=== PATIENT | male | born 1990 | race Caucasian/White ===

== ENCOUNTER 2017-01-09 20:00 | Emergency (ER) | payer MEDICAID ==
[~2017-01-09] VITALS: Ht 170.2 cm; Wt 95.3 kg
[2017-01-09 20:10] VITALS: BP 116/89
--- NOTE | 2017-01-09 20:21 | NUR ---
VISION ACUITY BOTH EYE 20/30, RT EYE 20/30, LEFT 20/70
--- NOTE | 2017-01-09 20:23 | NUR ---
PT TAKEN TO BED 6
--- NOTE | 2017-01-09 20:40 | NUR ---
26 yr male PATIENT PRESENTS TO ED WITH left eye pain with blurred vision . PT STATES since yesterday at work . DENIES N/V/D; SKIN IS PINK/WARM/DRY; AAOX4 WITH EVEN AND STEADY GAIT; LUNGS CLEAR BL; HR EVEN AND REGULAR; PT DENIES ANY FEVER, CP, SOB, OR COUGH AT THIS TIME; PATIENT STATES PAIN OF 2/10 AT THIS TIME; VSS; PATIENT POSITIONED FOR COMFORT; HOB ELEVATED; BEDRAILS UP X2; BED DOWN. ER MD MADE AWARE OF PT STATUS.
[2017-01-09] MEDS ORDERED: FLUORESCEIN OPTH STRIP 1 MG ONE (20:46)
[2017-01-09] MEDS ORDERED: TETRACAINE HCL/PF 0.5% OPTH 4 ML BTL ONE (20:46)
--- NOTE | 2017-01-09 20:49 | NUR ---
Dr. Batista evaluating patient at bedside.
--- NOTE | 2017-01-09 21:15 | NUR ---
Patient discharged with v/s stable. Written and verbal after care instructions given and explained. Patient verbalized understanding. Ambulatory with steady gait. All questions addressed prior to discharge. Advised to follow up with PMD.
[2017-01-09 21:21] VITALS: BP 110/70
== END 2017-01-09 21:15 | disposition home or self-care (01) ==
LOC: MED 20:00
DX: H57.12 Ocular pain, left eye (principal); H53.8 Other visual disturbances
CPT/HCPCS: 99284